=== PATIENT | female | born 1965 | race Caucasian/White ===

== ENCOUNTER 2017-03-11 05:20 | Emergency (ER) | payer BC ==
[~2017-03-11] VITALS: Ht 160 cm; Wt 64.3 kg
[2017-03-11] MEDS ORDERED: ASPIRIN 81 MG TABLET CHEW ONE (05:45)
[2017-03-11] MEDS ORDERED: ASPIRIN 81 MG TABLET CHEW PO ONE (06:00)
[2017-03-11 06:24] LABS: BLOOD UREA NITROGEN 22 mg/dL (7-18)
[2017-03-11 06:35] LABS: ASPARTATE AMINO TRANSFERASE 18 U/L (15-37); IS PT STATUS REG ER OR PRE ER? YES
[2017-03-11 06:57] VITALS: BP 111/74
== END 2017-03-11 07:13 | disposition home or self-care (01) ==
LOC: ED 06:17
DX: R07.89 Other chest pain (principal); D62 Acute posthemorrhagic anemia
CPT/HCPCS: 36415; 71010; 80053; 84484; 85025; 93005